=== PATIENT | female | born 1995 | race Two or more races ===

== ENCOUNTER → 2017-02-19 | Outpatient (REF) | payer OTHER | LOC: M SFHCLERA 16:30 | PROVIDERS: ATTEND Nurse Practitioner Family | DX: N30.01 Acute cystitis with hematuria (principal) ==

== ENCOUNTER → 2017-02-19 | Outpatient (CLI) | payer OTHER ==
--- NOTE | 2017-02-20 09:06 | REP ---
KUB ABDOMEN AND PELVIS: Two KUB films of abdomen and pelvis are performed. There is mild scattered fecal material throughout the colon. No dilated small bowel loops are seen. Tiny 2 mm calcification in the left pelvis probably represents a tiny phlebolith. IUD is seen centrally in the pelvis. I see no other significant finding. Signed by Harman Graham MD 02/20/2017 05:28 P
== END ==
LOC: M LRY 15:50
PROVIDERS: ATTEND Nurse Practitioner Family
DX: R31.9 Hematuria, unspecified (principal); Z97.5 Presence of (intrauterine) contraceptive device
CPT/HCPCS: 74000; 87088; 87491; 87591; G0463